=== PATIENT | female | born 1955 | race Caucasian/White ===

== ENCOUNTER 2020-09-17 09:01 | Emergency (ER) | payer MEDICARE, OTHER ==
[2020-09-17] MEDS ORDERED: Sodium Chloride 0.9% 10 ML Syringe FLUSH PRN (09:30)
[2020-09-17] MEDS ORDERED: fentaNYL 50 MCG/ML SDV IVPUSH ONE (09:30)
[2020-09-17] MEDS ORDERED: Ondansetron 4 MG/2 ML SDV IVPUSH ONE (09:30)
[2020-09-17] MEDS ORDERED: Sodium Chloride 0.9% 2.5 ML Syringe FLUSH PRN (09:30)
--- NOTE | 2020-09-17 09:33 | EDM.PDOC ---
ED HPI GENERAL MEDICAL PROBLEM - General Chief Complaint: Gastrointestinal Problem Stated Complaint: VOMITING/DIARRHEA Time Seen by Provider: 09/17/20 09:04 - History of Present Illness INITIAL COMMENTS - FREE TEXT/NARRATIVE: History of present illness: [] Review of systems: As per history of present illness and below otherwise all systems reviewed and negative. Past medical history: As per history of present illness and as reviewed below otherwise noncontributory. Surgical history: As per history of present illness and as reviewed below otherwise noncontributory. Social history: No reported history of drug or alcohol abuse. Family history: As per history of present illness and as reviewed below otherwise noncontributory. Physical exam: Constitutional - well developed, well-nourished and in no acute distress HEENT - normocephalic, no evidence of trauma - external nose and mouth normal - no mass in neck and no JVD - mucosae moist EYES - full EOM, PERRL, no icterus - no evidence of inflammation, injection, or drainage Respiratory -tender right posterior chest wall in the mid scapular line just above the costal margin-no respiratory distress, equal bilateral expansion, lungs clear to auscultation and no abnormal lung sounds Cardiovascular - Regular Rhythm with S1 and S2 appreciated and no murmur, gallop or rub. GI -tender in the right upper quadrant on the costal margin. Abdomen soft without distension or organomegaly -diminished bowel sounds - no guard or rebound Musculoskeletal no gross deformity of long bones or joints - no tenderness, swelling or edema Neurologic - Alert and oriented times four - CN II-XII grossly intact - motor sensory and coordination symmetrically normal Psychiatric - appropriate mood and affect with normal thought content Hematologic - No petechiae or purpura - mucosa appropriate color and sclera not pale - normal nail bed color and refill Integument - no rash or evidence of trauma - normal turgor Diagnostics: [] Therapeutics: [] Impression: [] Plan: [] Definitive disposition and diagnosis as appropriate pending reevaluation and review of above. right upper abdomen Pain Score (Numeric/FACES): 6 - Related Data Allergies Allergy/AdvReac Type Severity Reaction Status Date / Time nickel [Nickel] Allergy Itching Verified 09/17/20 09:42 simvastatin Allergy Muscle Verified 09/17/20 09:42 Aches adhesive tapes Allergy Redness Uncoded 09/17/20 09:42 Hyper-fix Allergy Itching Uncoded 09/17/20 09:42 Home Meds: Home Meds Citalopram [Citalopram HBr] 20 mg PO BRK 08/27/13 [History] hydroCHLOROthiazide [Hydrochlorothiazide] 25 mg PO BRK 08/27/13 [History] Baclofen 10 mg PO TID PRN 12/18/18 [History] Cholecalciferol (Vitamin D3) [Vitamin D3] 2,000 unit PO DAILY 12/18/18 [History] Diclofenac Sodium 4 gm TOP QID 12/18/18 [History] Esomeprazole Magnesium 20 mg PO QAM 12/18/18 [History] Fish Oil/[place]-3 Fatty Acids [Fish Oil 1,000 MG] 1,000 mg PO BID 12/18/18 [History] Fluticasone Propionate [Flonase Allergy Relief] 2 spray NASBOTH DAILY 12/18/18 [History] Lisinopril 10 mg PO DAILY 12/18/18 [History] Multivitamin [Multi-Day Vitamins] 1 tab PO DAILY 12/18/18 [History] Rosuvastatin Calcium 10 mg PO DAILY 12/18/18 [History] cycloSPORINE [Restasis Multidose] 1 drop EYEBOTH ASDIRECTED 12/18/18 [History] oxyCODONE HCl/Acetaminophen [Endocet 7.5-325 mg Tablet] 1 tab PO Q6H PRN MDD 1-2 12/18/18 [History] Ondansetron [Zofran ODT] 4 mg PO Q6H PRN #10 tab.dis 09/17/20 [Rx] Past Medical History HEENT History: Reports: Cataract, Other (See Below) Other HEENT History: uses reading glasses, has lower permanent bridge Cardiovascular History: Reports: Hypertension Musculoskeletal History: Reports: Back Pain, Chronic Other Musculoskeletal History: hx of fx pinky Neurological History: Reports: Neuropathy, Peripheral, Other (See Below) Other Neuro History: degenerative disc disease, chronic sciatica Psychiatric History: Reports: Anxiety, Depression Endocrine/Metabolic History: Reports: Obesity/BMI 30+ - Past Surgical History Neurological Surgical History: Reports: Spinal Fusion Musculoskeletal Surgical History: Reports: Knee Replacement, Other (See Below) ED ROS GENERAL - Review of Systems Review Of Systems: Comprehensive ROS is negative, except as noted in HPI. ED EXAM, GENERAL - Physical Exam Exam: See Below Free Text/Narrative:: My physical exam is in the HPI Course - Vital Signs Text/Narrative:: 11:16 AM patient feels better. Abdomen soft and not tender at this point. Last Recorded V/S: Last Vital Signs Temp 36.4 C 09/17/20 09:10 Pulse 74 09/17/20 10:15 Resp 18 09/17/20 10:15 BP 133/74 09/17/20 10:15 Pulse Ox 98 09/17/20 10:15 - Orders/Labs/Meds Orders: Active Orders 24 hr Category Date Time Status Sodium Chloride 0.9% [Saline Flush] Med 09/17/20 09:30 Active 10 ml FLUSH ASDIRECTED PRN Sodium Chloride 0.9% [Saline Flush] Med 09/17/20 09:30 Active 2.5 ml FLUSH ASDIRECTED PRN Saline Lock Insert [OM.PC] Stat Oth 09/17/20 09:30 Ordered Medication Orders Sodium Chloride (Sodium Chloride 0.9% 10 Ml Syringe) 10 ml FLUSH ASDIRECTED PRN PRN Reason: Keep Vein Open Last Admin: 09/17/20 10:06 Dose: 10 ml Documented by: SAURABH Sodium Chloride (Sodium Chloride 0.9% 2.5 Ml Syringe) 2.5 ml FLUSH ASDIRECTED PRN PRN Reason: Keep Vein Open Last Admin: 09/17/20 10:06 Dose: 2.5 ml Documented by: SAURABH Labs: Laboratory Tests 09/17/20 09/17/20 09/17/20 Range/Units 09:12 09:12 10:12 WBC 14.48 H (4.0-11.0) K/uL RBC 4.73 (4.30-5.90) M/uL Hgb 14.8 (12.0-16.0) g/dL Hct 44.5 (36.0-46.0) % MCV 94.1 (80.0-98.0) fL MCH 31.3 (27.0-32.0) pg MCHC 33.3 (31.0-37.0) g/dL RDW Std Deviation 48.9 (28.0-62.0) fl RDW Coeff of Ann 14 (11.0-15.0) % Plt Count 347 (150-400) K/uL MPV 10.80 (7.40-12.00) fL Neut % (Auto) 87.9 H (48.0-80.0) % Lymph % (Auto) 8.6 L (16.0-40.0) % [place] % (Auto) 3.0 (0.0-15.0) % Eos % (Auto) 0.3 (0.0-7.0) % Baso % (Auto) 0.2 (0.0-1.5) % Neut # (Auto) 12.7 H (1.4-5.7) K/uL Lymph # (Auto) 1.3 (0.6-2.4) K/uL [place] # (Auto) 0.4 (0.0-0.8) K/uL Eos # (Auto) 0.1 (0.0-0.7) K/uL Baso # (Auto) 0.0 (0.0-0.1) K/uL Nucleated RBC % 0.0 /100WBC Nucleated RBCs # 0 K/uL Sodium 140 (136-145) mmol/L Potassium 3.7 (3.5-5.1) mmol/L Chloride 101 (98-107) mmol/L Carbon Dioxide 29.4 (21.0-32.0) mmol/L BUN 17 (7.0-18.0) mg/dL Creatinine 0.8 (0.6-1.0) mg/dL Est Cr Clr Drug Dosing 64.76 mL/min Estimated GFR (MDRD) > 60.0 ml/min Glucose 114 H (74-106) mg/dL Calcium 9.8 (8.5-10.1) mg/dL Total Bilirubin 0.5 (0.2-1.0) mg/dL AST 24 (15-37) IU/L ALT 33 (14-63) IU/L Alkaline Phosphatase 93 (46-116) U/L Total Protein 8.4 H (6.4-8.2) g/dL Albumin 4.2 (3.4-5.0) g/dL Globulin 4.2 H (2.6-4.0) g/dL Albumin/Globulin Ratio 1.0 (0.9-1.6) Lipase 58 L (73-393) U/L Urine Color DARK YELLOW Urine Appearance CLEAR Urine pH 5.0 (5.0-8.0) Ur Specific [place] >= 1.030 (1.001-1.035) Urine Protein 30 H (NEGATIVE) mg/dL Urine Glucose (UA) NEGATIVE (NEGATIVE) mg/dL Urine Ketones TRACE H (NEGATIVE) mg/dL Urine Occult Blood NEGATIVE (NEGATIVE) Urine Nitrite NEGATIVE (NEGATIVE) Urine Bilirubin NEGATIVE (NEGATIVE) Urine Urobilinogen 0.2 (<2.0) EU/dL Ur Leukocyte Esterase NEGATIVE (NEGATIVE) U Hyaline Cast (Auto) 1-3 (0-2/LPF) Urine RBC NONE SEEN (0-2/HPF) Urine WBC 2-3 (0-5/HPF) Ur Epithelial Cells MODERATE (NONE-FEW) Amorphous Sediment LIGHT (NEGATIVE) Urine Bacteria 1+ H (NEGATIVE) Urine Mucus HEAVY (NONE-MOD) Meds: Medications Generic Name Dose Route Start Last Admin Trade Name Jamshid PRN Reason Stop Dose Admin Sodium Chloride 10 ml 09/17/20 09:30 09/17/20 10:06 Sodium Chloride 0.9% 10 Ml Syringe FLUSH 10 ml ASDIRECTED PRN Administration Keep Vein Open Sodium Chloride 2.5 ml 09/17/20 09:30 09/17/20 10:06 Sodium Chloride 0.9% 2.5 Ml Syringe FLUSH 2.5 ml ASDIRECTED PRN Administration Keep Vein Open Discontinued Medications Generic Name Dose Route Start Last Admin Trade Name Freayala PRN Reason Stop Dose Admin Fentanyl 50 mcg 09/17/20 09:30 09/17/20 10:06 Fentanyl 50 Mcg/Ml Sdv IVPUSH 09/17/20 09:31 50 mcg ONETIME ONE Administration Ondansetron HCl 4 mg 09/17/20 09:30 09/17/20 10:06 Ondansetron 4 Mg/2 Ml Sdv IVPUSH 09/17/20 09:31 4 mg ONETIME ONE Administration Departure - Departure Time of Disposition: 11:16 Disposition: Home, Self-Care 01 Condition: Good Clinical Impression: Gastroenteritis, Abdominal pain - Discharge Information Prescriptions: Ondansetron [Zofran ODT] 4 mg PO Q6H PRN #10 tab.dis PRN Reason: Nausea/Vomiting Instructions: Viral Gastroenteritis, Adult, [id number], Diarrhea, Adult Referrals: Eyad Linder MD [Primary Care Provider] - Forms: ED Department Discharge Additional Instructions: Imodium [id number] is fine for the diarrhea. Nausea medicine was sent to [place] [facility]. You can double your omeprazole for 2 or 3 days. [facility] [address] [place] [id number] [facility] [address] [place] [id number] The following information is given to patients seen in the emergency department who are being discharged to home. This information is to outline your options for follow-up care. We provide all patients seen in our emergency department with a follow-up referral. The need for follow-up, as well as the timing and circumstances, are variable depending upon the specifics of your emergency department visit. If you don't have a primary care physician on staff, we will provide you with a referral. We always advise you to contact your personal physician following an emergency department visit to inform them of the circumstance of the visit and for follow-up with them and/or the need for any referrals to a consulting specialist. The emergency department will also refer you to a specialist when appropriate. This referral assures that you have the opportunity for follow-up care with a specialist. All of these measure are taken in an effort to provide you with optimal care, which includes your follow-up. Under all circumstances we always encourage you to contact your private physician who remains a resource for coordinating your care. When calling for follow-up care, please make the office aware that this follow-up is from your recent emergency room visit. If for any reason you are refused follow-up, please contact the [facility] Emergency Department at and asked to speak to the emergency department charge nurse. Sepsis Event Note (ED) - Focused Exam Vital Signs: Vital Signs Temp Pulse Resp BP Pulse Ox 09/17/20 10:15 74 18 133/74 98 09/17/20 09:10 36.4 C 78 18 153/70 H 95 - My Orders Last 24 Hours: My Active Orders 09/17/20 09:30 Sodium Chloride 0.9% [Saline Flush] 10 ml FLUSH ASDIRECTED PRN Sodium Chloride 0.9% [Saline Flush] 2.5 ml FLUSH ASDIRECTED PRN Saline Lock Insert [OM.PC] Stat - Assessment/Plan Last 24 Hours: My Active Orders 09/17/20 09:30 Sodium Chloride 0.9% [Saline Flush] 10 ml FLUSH ASDIRECTED PRN Sodium Chloride 0.9% [Saline Flush] 2.5 ml FLUSH ASDIRECTED PRN Saline Lock Insert [OM.PC] Stat
[2020-09-17 09:53] LABS: BLOOD UREA NITROGEN,BUN 17 mg/dL (7.0-18.0); CARBON DIOXIDE,CO2 29.4 mmol/L (21.0-32.0); CHLORIDE,CL 101 mmol/L (98-107); GLUCOSE RANDOM 114 mg/dL (74-106); LIPASE 58 U/L (73-393); POTASSIUM,K 3.7 mmol/L (3.5-5.1); SODIUM,NA 140 mmol/L (136-145)
--- NOTE | 2020-09-17 10:46 | CR ---
Indication: Chest pain after fall Comparison: Two-view chest December 13, 2018 Technique: Single AP view chest Findings: There is hyperinflation and chronic interstitial change. There is basilar atelectasis versus scar with mild pulmonary vascular congestion. The cardiac silhouette is enlarged with a tortuous thoracic aorta. The bony thorax is grossly intact. Impression: Hyperinflation and chronic interstitial changes with mild pulmonary vascular congestion with linear basilar atelectasis versus scar. Dictated by Juan Pablo Tim MD @ 09/17/2020 10:45:[address] Juan Pablo Tim @ Sep 17 2020 10:45AM
--- NOTE | 2020-09-17 11:07 | US ---
Indication: Right upper quadrant abdomen pain TECHNIQUE: Ultrasound abdomen limited. Sonographic images of the right upper quadrant were obtained using alvarez-scale and color Doppler images. Comparison: None FINDINGS: Liver: Mild increased echogenicity. No masses. No intrahepatic biliary dilatation. Gallbladder: There is a small polyp within the gallbladder lumen. Normal wall thickness. No pericholecystic fluid. Common bile duct: 3 mm. Pancreas: Normal. Right kidney: The right kidney is normal in size contour and echogenicity. Impression: Demonstration of a small gallbladder polyp and minimal hepatic steatosis otherwise no evidence of acute cholecystitis. Dictated by Juan Pablo Tim MD @ 09/17/2020 11:06:[address] Juan Pablo Tim @ Sep 17 2020 11:06AM
== END 2020-09-17 11:31 | disposition home or self-care (01) ==
LOC: MW.ED 09:01
DX: K52.9 Noninfective gastroenteritis and colitis, unspecified (principal); I10 Essential (primary) hypertension; E66.9 Obesity, unspecified; Z68.32 Body mass index [BMI] 32.0-32.9, adult; Z88.8 Allergy status to other drugs, medicaments and biological substances; Z91.048 Other nonmedicinal substance allergy status; Z79.899 Other long term (current) drug therapy
CPT/HCPCS: 36415; 71045; 76705; 80053; 81001; 83690; 85025; 96374; 96375; 99284; J2405; J3010

== ENCOUNTER 2020-11-19 09:07 | Day surgery (SDC) | payer MEDICARE, OTHER ==
[~2020-11-19 09:07] MED LIST: Propofol 200 MG/20 ML SDV ONE; fentaNYL 100 MCG/2 ML SDV ONE
--- NOTE | 2020-11-19 09:47 | PCM.PREANE ---
Preanesthetic Assessment - Procedure Proposed Procedure: Colonoscopy - Anesthesia/Transfusion/Family Hx Anesthesia History: Prior Anesthesia Without Reaction Other Type of Anesthesia Reaction Comment: "had a hard time keeping my SA02 up after spinal cord stimulator insertion" Transfusion History: No Prior Transfusion(s) - Review of Systems General: No Symptoms Pulmonary: No Symptoms (had URI about 2 months ago and MDI prescribed for that. All resolved and doesn't use MDI) Cardiovascular: No Symptoms (HTN, HLD) Gastrointestinal: No Symptoms (GERD, well controlled) Neurological: No Symptoms (Peripheral neuropathy) Other: Reports: Depression, Anxiety - Physical Assessment NPO Status Date: 11/18/20 Height: 5 ft 6 in Weight: 90.265 kg ASA Class: 2 Mental Status: Alert & Oriented x3 Airway Class: Mallampati = 2 Dentition: Reports: Normal Dentition Thyro-Mental Finger Breadths: 3 Mouth Opening Finger Breadths: 3 ROM/Head Extension: Full Lungs: Clear to Auscultation, Normal Respiratory Effort Cardiovascular: Regular Rate, Regular Rhythm - Allergies Allergies/Adverse Reactions: Allergies Allergy/AdvReac Type Severity Reaction Status Date / Time nickel [Nickel] Allergy Itching Verified 11/13/20 10:07 simvastatin Allergy Muscle Verified 11/13/20 10:07 Aches adhesive tapes Allergy Redness Uncoded 11/13/20 10:07 Hyper-fix Allergy Itching Uncoded 11/13/20 10:07 - Acknowledgements Anesthesia Type Planned: General Anesthesia Pt an Appropriate Candidate for the Planned Anesthesia: Yes Alternatives and Risks of Anesthesia Discussed w Pt/Guardian: Yes Pt/Guardian Understands and Agrees with Anesthesia Plan: Yes PreAnesthesia Questionnaire HEENT History: Reports: Cataract, Other (See Below) Other HEENT History: uses reading glasses, has lower permanent bridge Cardiovascular History: Reports: High Cholesterol, Hypertension Respiratory History: Reports: Other (See Below) Other Respiratory History: denies any respitory problems, states had URI 6 weeks ago and was prescribed an inhaler Gastrointestinal History: Reports: GERD Genitourinary History: Reports: None GROUNDS/MAINTENANCE SPECIALIST History: Reports: None Musculoskeletal History: Reports: Back Pain, Chronic, Fibromyalgia, Osteoarthritis Other Musculoskeletal History: DDD Neurological History: Reports: Neuropathy, Peripheral, Other (See Below) Other Neuro History: degenerative disc disease, Psychiatric History: Reports: Anxiety, Depression Endocrine/Metabolic History: Reports: Obesity/BMI 30+ Hematologic History: Reports: None Immunologic History: Reports: None Oncologic (Cancer) History: Reports: None Dermatologic History: Reports: None - Infectious Disease History Infectious Disease History: Reports: None - Past Surgical History Head Surgeries/Procedures: Reports: None HEENT Surgical History: Reports: Cataract Surgery Cardiovascular Surgical History: Reports: None Respiratory Surgical History: Reports: None GI Surgical History: Reports: Appendectomy, Colonoscopy Female Surgical History: Reports: Breast Biopsy, Other (See Below) Other Female Surgeries/Procedures: exploratory laparoscopy Endocrine Surgical History: Reports: None Neurological Surgical History: Reports: Spinal Fusion, Other (See Below) Other Neurological Surgeries/Procedures: spinal cord stimulator trial Musculoskeletal Surgical History: Reports: Arthroscopic Knee, Knee Replacement, Other (See Below) Other Musculoskeletal Surgeries/Procedures:: martha knee scopes, right TKA Oncologic Surgical History: Reports: None Dermatological Surgical History: Reports: None - SUBSTANCE USE Tobacco Use Status *Q: Never Tobacco User - HOME MEDS Home Medications: Home Meds Citalopram [Citalopram HBr] 20 mg PO QAM 08/27/13 [History] hydroCHLOROthiazide [Hydrochlorothiazide] 25 mg PO QAM 08/27/13 [History] Diclofenac Sodium 4 gm TOP QID PRN 12/18/18 [History] Fish Oil/[place]-3 Fatty Acids [Fish Oil 1,000 MG] 1,000 mg PO DAILY 12/18/18 [History] Fluticasone Propionate [Flonase Allergy Relief] 2 spray NASBOTH DAILY 12/18/18 [History] Multivitamin [Multi-Day Vitamins] 1 tab PO DAILY 12/18/18 [History] Rosuvastatin Calcium 10 mg PO DAILY 12/18/18 [History] Albuterol Sulfate [Albuterol Sulfate HFA] 2 puff INH ASDIRECTED PRN 11/13/20 [History] Ascorbic Acid [Vitamin C] 1,000 units PO DAILY 11/13/20 [History] Cholecalciferol (Vitamin D3) [Vitamin D3] 1,000 units PO DAILY 11/13/20 [History] Esomeprazole [NexIUM] 20 mg PO DAILY 11/13/20 [History] Ketamine Hcl Powder 1 applic TOP ASDIRECTED PRN 11/13/20 [History] Losartan Potassium 50 mg PO DAILY 11/13/20 [History] Melatonin 3 mg PO BEDTIME PRN 11/13/20 [History] Naltrexone HCl 4.5 mg PO BEDTIME 11/13/20 [History] Potassium Chloride 10 meq PO DAILY 11/13/20 [History] Vitamin B Complex 1 tab PO DAILY 11/13/20 [History] Zinc Gluconate [Zinc] 1 tab PO DAILY 11/13/20 [History] - CURRENT (IN HOUSE) MEDS Current Meds: Current Medications Lactated Ringer's (Ringers, Lactated) 1,000 mls @ 125 mls/hr IV ASDIRECTED BRITTNEY Discontinued Medications Fentanyl (Fentanyl 100 Mcg/2 Ml Sdv) Confirm Administered Dose 100 mcg .ROUTE .STK-MED ONE Stop: 11/19/20 07:08 Propofol (Propofol 200 Mg/20 Ml Sdv) Confirm Administered Dose 400 mg .ROUTE .STK-MED ONE Stop: 11/19/20 07:08
[2020-11-19] MEDS ORDERED: Lactated Ringers 1,000 ML IV SCH (10:45)
[2020-11-19] MEDS ORDERED: fentaNYL 100 MCG/2 ML SDV ONE (12:07)
--- NOTE | 2020-11-19 12:24 | PCM.OPNOTE ---
- General Post-Op/Procedure Note Date of Surgery/Procedure: 11/19/20 Operative Procedure(s): colonoscopy with biopsies Findings: slight irritation of mucosa - mainly in the cecum dictation number [id number] Pre Op Diagnosis: abdominal pain, Post-Op Diagnosis: slight irritation of mucosa - mainly in the cecum Anesthesia Technique: MAC Primary Surgeon: Josh Quiros Pathology: random biopsies Complications: None Condition: Good
--- NOTE | 2020-11-19 12:28 | PCM.POSTAN ---
POST ANESTHESIA ASSESSMENT - MENTAL STATUS Mental Status: Alert, Oriented - VITAL SIGNS Vital Signs: Last Vital Signs Temp 97.3 F 11/19/20 09:25 Pulse 73 11/19/20 09:25 Resp 16 11/19/20 09:25 BP 117/71 11/19/20 09:25 Pulse Ox 94 L 11/19/20 09:25 - RESPIRATORY Respiratory Status: Respiratory Rate WNL, Airway Patent, O2 Saturation Stable - CARDIOVASCULAR CV Status: Pulse Rate WNL, Blood Pressure Stable - GASTROINTESTINAL GI Status: No Symptoms - PAIN Pain Score: 0 - POST OP HYDRATION Hydration Status: Adequate & Stable
--- NOTE | 2020-11-19 12:30 | PCM48HPAN ---
Post Anesthesia Note - EVALUATION WITHIN 48HRS OF ANESTHETIC Vital Signs in Normal Range: Yes Patient Participated in Evaluation: Yes Respiratory Function Stable: Yes Airway Patent: Yes Cardiovascular Function Stable: Yes Hydration Status Stable: Yes Pain Control Satisfactory: Yes Nausea and Vomiting Control Satisfactory: Yes Mental Status Recovered: Yes Vital Signs: Last Vital Signs Temp 97.3 F 11/19/20 09:25 Pulse 73 11/19/20 09:25 Resp 16 11/19/20 09:25 BP 117/71 11/19/20 09:25 Pulse Ox 94 L 11/19/20 09:25 - COMMENTS/OBSERVATIONS Free Text/Narrative:: Pt doing well post-op. VSS. No apparent anesthetic complications. Dr. Meng Cancino
--- NOTE | 2020-11-19 20:26 | OR ---
SURGEON: MADDI ISSA MD DATE OF PROCEDURE: 11/19/2020 PREOPERATIVE DIAGNOSIS: Abdominal pain. POSTOPERATIVE DIAGNOSIS: Some slight mucosal irritation, more in the cecum. EXTENT OF COLONOSCOPY: To the cecum. BOWEL PREP: Very good. LIMITATIONS: None. PROCEDURES PERFORMED: 1. Colonoscopy. 2. Random biopsies. PRIMARY SURGEON: Maddi Issa MD REASON FOR PROCEDURE: The patient is a pleasant 65-year-old female. Last colonoscopy was 10 years ago, which was normal. The patient says that she has been having some dull ache in her right lower abdomen for the past 2 to 3 years. She goes between loose stools and constipation. She had a CT scan, which showed no inflammation. There is a question of a potential appendix, but after reviewing it myself and reviewing with the radiologist, it does not look that she has appendix. Also, she has had her appendix removed in the past surgically. PROCEDURE IN DETAIL: Physical examination was performed. The major risks and benefits associated with the procedure were explained to the patient in detail. The patient verbalized understanding and agreement of the same. The patient was then connected to the appropriate monitoring device and IV was started. EKG, pulse, pulse oximetry, blood pressure, and capnography were monitored throughout the entire procedure. Continuous oxygen and sedation were provided by the anesthesiologist. The patient was placed in a left lateral decubitus position. Sedation began. After adequate sedation was achieved, a digital rectal exam was performed. The patient has very minimal rectal hemorrhoidal skin tags. Otherwise, no masses felt. Now, a well-lubricated Olympus colonoscope was inserted into the rectum and advanced under direct visualization to the level of the cecum. The cecum was identified by both visual and anatomic landmarks. Photographs were taken of the cecal cap. The scope was then slowly withdrawn in circular fashion looking at the color, texture, anatomy, and integrity of the mucosa from the cecum to the anal canal. The patient's mucosa in the colon was slightly more irritated. This was more pronounced in the cecum. I did do random biopsies of the cecum and ascending and transverse colon, and also separate bottle of biopsies from the descending and sigmoid colon. Did have some slight irritation, it could potentially be prep related though. No other masses or polyps were seen. Scope was retroflexed in the rectum. She did have noninflamed internal hemorrhoids. Scope was completely removed and procedure was terminated. ENDOSCOPIC DIAGNOSIS: Some slight mucosal irritation, greater in the cecum. RECOMMENDATIONS: Followup colonoscopy will depend on pathology. The patient will follow up in clinic to go over this. NISHANT CLEMENT /[id number] MTDD
== END 2020-11-19 13:05 | disposition home or self-care (01) ==
LOC: MW.SDS 09:07
PROVIDERS: ATTEND Surgery
DX: K52.9 Noninfective gastroenteritis and colitis, unspecified (principal); K64.8 Other hemorrhoids; E78.00 Pure hypercholesterolemia, unspecified; I10 Essential (primary) hypertension; E66.9 Obesity, unspecified; Z88.8 Allergy status to other drugs, medicaments and biological substances; Z91.048 Other nonmedicinal substance allergy status; Z79.899 Other long term (current) drug therapy; Z98.890 Other specified postprocedural states; Z68.32 Body mass index [BMI] 32.0-32.9, adult; Z01.812 Encounter for preprocedural laboratory examination; Z20.822 Contact with and (suspected) exposure to COVID-19
CPT/HCPCS: 45380; 88305; J2704; J3010; U0002; 00812

== ENCOUNTER 2022-01-31 13:18 | Emergency (ER) | payer MEDICARE, OTHER ==
[2022-01-31] MEDS ORDERED: Acetaminophen/HYDROcodone 325-5 MG Tab PO ONE (14:46)
[2022-01-31] MEDS ORDERED: Ibuprofen 600 MG Tab PO ONE (15:11)
== END 2022-01-31 15:27 | disposition home or self-care (01) ==
LOC: MW.ED 13:18
DX: S63.502A Unspecified sprain of left wrist, initial encounter (principal); E78.00 Pure hypercholesterolemia, unspecified; I10 Essential (primary) hypertension; K21.9 Gastro-esophageal reflux disease without esophagitis; E66.9 Obesity, unspecified; Z68.27 Body mass index [BMI] 27.0-27.9, adult; Z91.048 Other nonmedicinal substance allergy status; Z88.8 Allergy status to other drugs, medicaments and biological substances; Z79.899 Other long term (current) drug therapy; W18.30XA Fall on same level, unspecified, initial encounter
CPT/HCPCS: 73110; 99283; A9270